=== PATIENT | female | born 1970 | race Caucasian/White ===

== ENCOUNTER 2021-09-03 14:58 | Emergency (ER) | payer OTHER ==
[2021-09-03 17:27] LABS: HEMOGLOBIN 12.6 gm/dl (12.3-15.3); RED BLOOD COUNT 3.99 M/UL (4.00-5.10); WHITE BLOOD COUNT 9.2 K/UL (4.5-11.0)
[2021-09-03 17:41] LABS: BUN/CREATININE RATIO 15 (0-10)
[2021-09-03] MEDS ORDERED: COLACE 100MG C100 MG PO (20:02)
[2021-09-03] MEDS ORDERED: MACROBID 100 M100 MG PO (20:13)
== END 2021-09-03 20:43 | disposition home or self-care (01) ==
LOC: ER1 14:58
PROVIDERS: Physician Assistant
DX: K59.00 Constipation, unspecified (principal); N39.0 Urinary tract infection, site not specified; F17.200 Nicotine dependence, unspecified, uncomplicated; Z88.0 Allergy status to penicillin
CPT/HCPCS: 80053; 81001; 83690; 85025; 99284; Q9967